=== PATIENT | male | born 1955 | race Caucasian/White ===

== ENCOUNTER 2019-03-07 17:52 | Emergency (ER) | payer BC ==
[2019-03-07 18:04] VITALS: TEMP 98
[2019-03-07] MEDS ORDERED: ONDANSETRON ODT 4 MG TAB PO STA (18:13)
[2019-03-07] MEDS ORDERED: MORPHINE SULFATE 4 MG/ML SYRINGE IM STA (18:13)
--- NOTE | 2019-03-07 18:24 | ED ---
General Adult HPI - General Source: patient Mode of arrival: ambulatory Limitations: no limitations <Cindy Villeda - Last Filed: 03/07/19 20:38> <Marcus Ray - Last Filed: 03/07/19 21:23> - General Chief complaint: Head Injury Stated complaint: Head Laceration Time Seen by Provider: 03/07/19 18:06 - History of Present Illness Initial comments: 64-year-old male patient presents to the emergency department today for evaluation of laceration surrounding the left eye. Approximately 45 minutes ago patient was coming into the garage when he missed the last step and fell forward striking his face on a bar of a lawnmower. Patient denies any loss of consciousness with this. Denies any neck or back pain. Does not report any visual disturbance. He is reporting numbness to the left side of his face including to the left upper teeth. States his last tetanus vaccine was within the last year. Denies any other injuries. He denies use of anticoagulant or antiplatelet medications. Patient denies any chest pain, shortness of breath, dizziness, weakness, abdominal pain, nausea, vomiting, or difficulties with bowel movements or urination. (Cindy Villeda) - Related Data Allergies Allergy/AdvReac Type Severity Reaction Status Date / Time No Known Allergies Allergy Verified 03/07/19 18:00 Review of Systems ROS Other: All systems not noted in ROS Statement are negative. <Cindy Villeda - Last Filed: 03/07/19 20:38> ROS Other: All systems not noted in ROS Statement are negative. <Marcus Ray - Last Filed: 03/07/19 21:23> ROS Statement: Those systems with pertinent positive or pertinent negative responses have been documented in the HPI. Past Medical History Past Medical History: Thyroid Disorder History of Any Multi-Drug Resistant Organisms: None Reported Past Surgical History: Back Surgery Past Psychological History: No Psychological Hx Reported Smoking Status: Never smoker Past Alcohol Use History: Occasional Past Drug Use History: None Reported <Cindy Villeda - Last Filed: 03/07/19 20:38> General Exam Limitations: no limitations General appearance: alert, in no apparent distress, other (This is a well- developed, well-nourished adult male patient in no acute distress. Vital signs upon presentation are temperature 98.0F, pulse 84, respirations 18, blood pressure 160/90, pulse ox 95% on room air.) Eye exam: Present: PERRL, EOMI, conjunctival injection (Left), other (There is large 10cm gaping laceration noted to the left eyebrow, multiple small lacerations noted to the left lower lid and the left upper lid. There does appear to be outer canthus involvment. Active bleeding noted.) ENT exam: Present: normal exam, normal oropharynx, mucous membranes moist, TM's normal bilaterally (No hemotympanum), other (No xavier sign) Neck exam: Present: normal inspection, full ROM, other (Nontender, no step-off, no deformity to firm midline palpation of the posterior cervical spine. Full range of motion without pain or limitation.). Absent: tenderness, meningismus, lymphadenopathy Respiratory exam: Present: normal lung sounds bilaterally. Absent: respiratory distress, wheezes, rales, rhonchi, stridor Cardiovascular Exam: Present: regular rate, normal rhythm, normal heart sounds. Absent: systolic murmur, diastolic murmur, rubs, gallop, clicks GI/Abdominal exam: Present: soft, normal bowel sounds. Absent: distended, tenderness, guarding, rebound, rigid Back exam: Present: normal inspection, other (Nontender, no step-off, no deformity to firm midline palpation of the thoracic and lumbar vertebrae. Full range of motion without pain or limitation.). Absent: vertebral tenderness Neurological exam: Present: alert, oriented X3, CN II-XII intact, other (Strength in all 4 extremities is 5/5.) Psychiatric exam: Present: normal affect, normal mood Skin exam: Present: warm, dry, intact, normal color. Absent: rash <Cindy Villeda - Last Filed: 03/07/19 20:38> Course <Marcus Ray - Last Filed: 03/07/19 21:23> Vital Signs 03/07/19 03/07/19 03/07/19 18:01 19:04 20:00 Temperature 98 F Pulse Rate 84 85 74 Respiratory 18 20 18 Rate Blood Pressure 160/90 157/90 142/85 O2 Sat by Pulse 95 98 99 Oximetry 03/07/19 20:28 Temperature Pulse Rate 73 Respiratory 18 Rate Blood Pressure 143/85 O2 Sat by Pulse 98 Oximetry - Reevaluation(s) Reevaluation #1: 11/30/19 21:22 And P supervision: I proceeded [id number] evaluation the patient he did fall and sustained a laceration to his left periorbital region extending into his eyelids on the upper aspect as well as the lateral lower aspect. He did them straight evidence of a blow out fracture also on CAT scan. Patient was transferred to [facility]. He was awake alert oriented 3 with a Vanderbilt Coma Scale of 15 on my exam. I do agree with the assessment and plan. (Marcus Ray) Procedures - Laceration Laceration #1 Consent Obtained: verbal consent Indication: laceration Site: face Size (cm): 10 Description: flap, irregular Anesthesia Technique: local infiltration Amount (mls): 5 Pre-repair: irrigated extensively Type of Sutures: nylon Size of Sutures: 5-0 Number of Sutures: 3 (Sutures placed for control of bleeding) Technique: simple, interrupted Patient Tolerated Procedure: well, no complications <Cindy Villeda - Last Filed: 03/07/19 20:38> Medical Decision Making - Radiology Data Radiology results: report reviewed, image reviewed <Cindy Villeda - Last Filed: 03/07/19 20:38> - Medical Decision Making 64-year-old male patient presented to the emergency department today after sustaining facial trauma from a fall. Patient reported missing the last step coming into the garage and he fell forward and hit his face on a lawnmower. He is reporting significant pain surrounding the left eye and numbness to the left side of his face including the left upper teeth. Physical examination did reveal a 10 cm gaping laceration over the left eyebrow and down to the temporal region. There are multiple small lacerations to the upper and lower lids. There did appear to be lateral canthus involvement. I did cleanse the area. I did place 3 sutures for control of bleeding. Dressing was applied. CT of the facial bones and brain was obtained and showed evidence for inferior and medial wall blowout fracture with herniation of the periorbital fat into the maxillary sinus. I discussed the case with Dr. Ponce, he does not manage orbital wall injuries. Patient will be transferred to [facility] where they do have oculoplastics available. We did give pain medication and a dose of IV keflex. Patient's tetanus is up to date within the last year. I did discuss findings and plan with the patient he is agreeable. (Cindy Villeda) - Radiology Data CT facial bones without contrast were obtained. Report was reviewed in its entirety. Impression by Dr. Glynn shows fluid level left maxillary sinus, large blowout fracture of the floor of the left orbit. There is extensive herniation of orbital fat into the left maxillary sinus. There is 12 mm downward displacement of the fourth left bony orbit. Some downward to the left inferior rectus muscle. Nondisplaced nasal bone fracture. CT brain without contrast was obtained. Report was reviewed in its entirety. Impression by Dr. Glynn shows negative computed tomography scan of the brain. There is significant facial bone findings described in the facial bone report. (Cindy Villeda) Disposition - Out of Hospital Transfer - Req. Specs Out of Hospital Transfer - Requested Specifics: Other Emergency Center ([facility]) <Cindy Villeda - Last Filed: 03/07/19 20:38> <Marcus Ray - Last Filed: 03/07/19 21:23> Clinical Impression: Open blow-out fracture of left orbit, Nasal bone fracture, Laceration of periorbital area Disposition: OTHER INSTITUTION NOT DEFINED Condition: Serious Referrals: Nonstaff,Physician [Primary Care Provider] - 1-2 days
[2019-03-07] MEDS ORDERED: LIDOCAINE 1% INJ 10MG/ML (20 ML MDV) SQ ONE (18:41)
[2019-03-07] MEDS ORDERED: HYDROmorphone 1 MG/ML 1 ML SYRINGE IM STA (19:04)
--- NOTE | 2019-03-07 20:02 | CT ---
EXAMINATION TYPE: CT facial bones wo con DATE OF EXAM: 03/07/2019 COMPARISON: None HISTORY: Fall, hitting rollbar of lawnmower. Left supraorbital injury. CT DLP: mGycm Automated exposure control for dose reduction was used. TECHNIQUE: CT scan of the sinuses is performed without contrast, axial images are obtained, coronal r eformatted images are also reviewed. FINDINGS: The mandibular ring is intact. Temporomandibular joints appear normal. Zygomatic arches ave ear normal. There is fluid level in the left maxillary sinus. There is large blowout fracture of the floor of the left orbit. There is extensive herniation of orbital fat into the left maxillary sinus. There is 12 mm downward displacement of the floor of the left bony orbit. There is some downward disp lacement of the left inferior rectus muscle. There is also a blowout fracture of the medial wall of the left orbit with herniation of fat into the ethmoid sinus. There is anterior and inferior intraorbital air. The air appears to be preseptal. T here is also some air at the floor of the left bony orbit at the site of the blowout fracture. There Is mild deformity of the nasal bone suggestive of a nondisplaced fracture. The globes are symmetric. There is laceration of the scalp over the left frontal bone. There is possible 2 mm subcutaneous fore ign body. IMPRESSION: Blowout fracture of the floor and the medial wall of the left bony orbit as above with si gnificant herniation seen. Anterior and posterior intraorbital air is seen. Left frontal scalp lacera tion and small foreign body. The Nondisplaced nasal bone fracture.
[2019-03-07 20:04] VITALS: RESP 18
--- NOTE | 2019-03-07 20:04 | CT ---
EXAMINATION TYPE: CT brain wo con DATE OF EXAM: 03/07/2019 COMPARISON: None HISTORY: Fall, hitting rollbar of lawnmower. Left supraorbital injury. CT DLP: 1400.6 mGycm Automated exposure control for dose reduction was used. FINDINGS: Ventricles and sulci appear normal. There is no mass effect nor midline shift. There is no sign of in tracranial hemorrhage. Calvarium is intact. IMPRESSION: NEGATIVE CT SCAN OF THE BRAIN. THERE IS SIGNIFICANT FACIAL BONE FINDINGS DESCRIBED IN THE FACIAL BONE REPORT.
[2019-03-07 20:30] VITALS: BP 143/85; PULSE 73
[2019-03-07] MEDS ORDERED: HYDROmorphone 1 MG/ML 1 ML SYRINGE IVP STA (20:38)
== END 2019-03-07 21:54 | disposition other institution (70) ==
LOC: EC 17:52
DX: S02.32XB Fracture of orbital floor, left side, initial encounter for open fracture (principal); S02.2XXB Fracture of nasal bones, initial encounter for open fracture; S01.112A Laceration without foreign body of left eyelid and periocular area, initial encounter; W10.9XXA Fall (on) (from) unspecified stairs and steps, initial encounter
CPT/HCPCS: 70486; 70450; 99284; 12015; 96365; 96375; 96372 ×2; J2270; J0690; J2001; J1170